=== PATIENT | male | born 1950 | race Two or more races ===

== ENCOUNTER 2023-02-15 04:46 | Day surgery (SDC) | payer OTHER ==
[2023-02-14 18:04] VITALS: BMI 27.8
[2023-02-15] MEDS ORDERED: FENTANYL CITRATE/PF 50 MCG/ML VIAL ONE (09:56)
[2023-02-15] MEDS ORDERED: MIDAZOLAM HCL 2 MG/2 ML SINGLE DOSE VIAL ONE (09:56)
[2023-02-15] MEDS ORDERED: SODIUM CHLORIDE 500 ML IV ONE (11:10)
[2023-02-15] MEDS ORDERED: FENTANYL CITRATE/PF 50 MCG/ML VIAL IVPUSH ONE (11:18)
[2023-02-15 13:45] VITALS: RESP 18; TEMP 98
[2023-02-15 13:48] VITALS: BP 136/78; PULSE 57
== END 2023-02-15 13:15 | disposition home or self-care (01) ==
LOC: JRADIR 04:46
PROVIDERS: ATTEND Specialist
PROC: 07DR3ZX Extraction of Iliac Bone Marrow, Percutaneous Approach, Diagnostic (ICD-10-PCS; principal; 2023-02-15)
PROC: 079T3ZX Drainage of Bone Marrow, Percutaneous Approach, Diagnostic (ICD-10-PCS; 2023-02-15)
DX: D45 Polycythemia vera (principal)
CPT/HCPCS: 20225; 88300-TC

== ENCOUNTER 2024-12-23 12:22 | Emergency (ER) | payer OTHER ==
[2024-12-23 12:38] VITALS: BP 167/62; PULSE 59; RESP 16; TEMP 97.8; BMI 26.6
[2024-12-23 13:51] LABS: HEMATOCRIT 25.1 % (40.1-51.0); HEMOGLOBIN 7.8 g/dL (13.7-17.5); MCHC 31.1 g/dl (32.3-36.5); MEAN CELL VOLUME 106.4 fl (79.0-92.2); MEAN PLT VOLUME 9.7 fl (9.4-12.4); PLATELET COUNT 439 x10^3/uL (163-337); RDW 17.9 % (12.2-16.6)
[2024-12-23 13:58] LABS: PH,URINE 5.5 (5.0-8.0); URINE APPEARANCE CLEAR; URINE BILIRUBIN NEGATIVE (NEGATIVE); URINE COLOR YELLOW; URINE GLUCOSE (UA) NEGATIVE (NEGATIVE); URINE KETONE NEGATIVE (NEGATIVE); URINE LEUK ESTERASE NEGATIVE (NEGATIVE); URINE NITRITE NEGATIVE (NEGATIVE); URINE PROTEIN NEGATIVE (NEGATIVE); URINE UROBILINOGEN 0.2 mg/dL (0.2-1.0)
[2024-12-23 14:09] LABS: POTASSIUM 4.7 mmol/L (3.5-5.1)
[2024-12-23 14:13] LABS: ALBUMIN 3.9 g/dl (3.4-5.0); BLOOD UREA NITROGEN 24.1 mg/dL (7-18); CALCIUM 9.1 mg/dL (8.5-10.1)
[2024-12-23 14:18] LABS: TOT PROT 7.2 g/dl (6.4-8.2)
[2024-12-23 14:22] LABS: CREATININE 1.2 mg/dL (0.55-1.3)
[2024-12-23 15:05] LABS: HCV DIAGNOSTIC IN-HOUSE W/RFLX NON-REACTIVE (NONREACTIVE); HIV INTERPRETATION NEGATIVE (NEGATIVE)
== END 2024-12-23 15:18 | disposition home or self-care (01) ==
LOC: JER 12:22
DX: D61.89 Other specified aplastic anemias and other bone marrow failure syndromes (principal); D47.1 Chronic myeloproliferative disease; I10 Essential (primary) hypertension
CPT/HCPCS: 36415; 80053; 81003; 85025; 86803; 86850; 86900; 86901; 87389; 88300-TC; 99283-25